=== PATIENT | male | born 1960 | race Caucasian/White ===

== ENCOUNTER 2019-03-20 18:46 | Emergency (ER) | payer BC ==
[2019-03-20] MEDS ORDERED: EPINEPHrine SYR 0.1MG/ML* SYRINGE ONE (18:47)
[2019-03-20] MEDS ORDERED: Amiodarone 150 MG IVPREMIX* 1.5 MG/ML 100 ML BAG IV ONE (18:47)
[2019-03-20] MEDS ORDERED: Naloxone* 0.4 MG/ML 10 ML VIAL ONE (18:47)
[2019-03-20] MEDS ORDERED: Magnesium Sulfate 2 GM IV* 50 ML BAG ONE (18:47)
[2019-03-20 19:04] VITALS: BP 0/0
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
--- NOTE | 2019-03-20 19:23 | ED ---
Progress - Progress Note Progress Note: Assisted Dr. Harmon with intubation of patient. Glidescope was used, 8.0 tube, first attempt was successful, 26 at the lip, bilateral breath sounds, and no post intubation chest xray. Course/Dx - Course Course Of Treatment: Assisted Dr. Harmon with intubation of patient. Glidescope was used, 8.0 tube, first attempt was successful, 26 at the lip, bilateral breath sounds, and no post intubation chest xray. - Diagnoses Provider Diagnoses: Cardiac arrest Discharge ED - Sign-Out/Discharge Documenting (check all that apply): Patient Departure - - Discharge Plan Condition: Disposition: Referrals: Samia Ennis MD [Primary Care Provider] - - Attestation Statements Document Initiated by Scribe: Yes Documenting Scribe: Flaquita Lpoez Provider For Whom Scribe is Documenting (Include Credential): Fernando Cohen MD Scribe Attestation: IFlaquita and Michael Lopez, scribed for Fernando Cohen MD on 03/21 at 0234. Status of Scribe Document: Ready
== END 2019-03-20 20:29 | disposition expired ==
LOC: EDBD → EDUNIT# → ED 18:46
DX: I46.9 Cardiac arrest, cause unspecified (principal); Z79.899 Other long term (current) drug therapy
CPT/HCPCS: 99285; J0171; J0282; J2310; J3475